=== PATIENT | male | born 1930 | race Caucasian/White ===

== ENCOUNTER 2016-10-25 13:48 | Observation (INO) ==
[2016-10-25] MEDS ORDERED: PHYTONADIONE 10 MG in 0.9 % SODIUM CHLORIDE 50 ML IV ONE (14:10)
[2016-10-25] MEDS ORDERED: PHYTONADIONE 10 MG/ML AMPUL IM ONE (14:21)
[2016-10-25] MEDS ORDERED: PHYTONADIONE 10 MG/ML AMPUL ONE (14:22)
[2016-10-25] MEDS ORDERED: diphenhydrAMINE 50 MG/ML VIAL IV ONE (14:26)
[2016-10-25] MEDS ORDERED: ACETAMINOPHEN 325 MG TABLET PO ONE (14:26)
[2016-10-25] MEDS ORDERED: 0.9 % SODIUM CHLORIDE 1,000 ML IV ONE ×2 (14:26→22:35)
[2016-10-25] MEDS ORDERED: 0.9 % SODIUM CHLORIDE 250 ML IV SCH ×6 (14:30→22:45)
[2016-10-25] MEDS ORDERED: TRANEXAMIC ACID 1,000 MG/10 ML VIAL IV ONE (14:32)
--- NOTE | 2016-10-25 15:25 | Emergency Department Note ---
General Adult HPI - General Chief complaint: Bleeding Other Stated complaint: Cannot stop bleeding from a tooth Time Seen by Provider: 10/25/16 14:10 Source: family Mode of arrival: ambulatory Limitations: no limitations - History of Present Illness HPI Narrative: 86-year-old male who is on Coumadin for atrial fibrillation and a mechanical heart valve comes in after getting dental surgery 4 days ago. Since then he has had gradually increasing oozing from his right lower gum. Yesterday he just really started bleeding rather briskly and so this morning his dentist put a couple stitches in the gums. Did not resolve the issue and in fact is now with quite a bit of swelling and now purpura developing in his neck. Taking [place] for pain. He is now soaking through a gauze pad about every couple minutes. Complains of increasing frequency of urine-this is chronic. - Related Data Home Medications Medication Instructions Recorded Confirmed cholecalciferol (vitamin D3) 2,000 2,000 unit PO QDAY cap 11/13/14 10/25/16 unit capsule ascorbic acid (vitamin C) 1,000 mg 1 g PO QDAY tab 03/14/15 10/25/16 tablet calcium carbonate 600 mg calcium 600 mg PO QDAY tab 03/14/15 10/25/16 (1,500 mg) tablet coenzyme Q10 100 mg capsule 100 mg PO QDAY 03/14/15 10/25/16 vitamin E 200 unit capsule 400 unit PO QDAY 03/14/15 10/25/16 ferrous sulfate 325 mg (65 mg 325 mg PO QDAY 03/11/16 10/25/16 iron) tablet Walker [Ultra-Light Rollator] 1 each .ROUTE .MEDSUPPLY 10/25/16 10/25/16 Previous Rx's Medication Instructions Recorded lansoprazole 30 mg capsule,delayed 30 mg PO QDAY 90 Days 12/31/14 release magnesium hydroxide 400 mg/5 mL 30 ml PO QHS #360 ml 02/13/15 oral suspension polyethylene glycol 3350 17 17 g PO BID #2 each 08/16/15 gram/dose oral powder diclofenac 1 % topical gel 2 g TOPICAL TID #100 g 10/24/15 docusate sodium 100 mg capsule 100 mg PO BID 90 Days 10/31/15 calcitonin (salmon) 200 1 spray INTRANASAL QDAY #3.7 ml 04/03/16 unit/actuation nasal spray venlafaxine ER 75 mg 150 mg PO QDAY 90 Days 04/03/16 capsule,extended release 24 hr sennosides 8.6 mg tablet 8.6 mg PO BID PRN #20 tab 04/06/16 digoxin 250 mcg tablet 125 mcg PO QDAY 90 Days 04/23/16 methimazole 10 mg tablet 10 mg PO .COMPLEX #45 tab 08/20/16 sotalol 80 mg tablet 80 mg PO .COMPLEX 90 Days 08/20/16 warfarin 5 mg tablet See Dose Instructions PO .COMPLEX 09/24/16 #30 tab tamsulosin 0.4 mg capsule 0.4 mg PO BID 90 Days 09/29/16 fentanyl 25 mcg/hr transdermal 1 patch TRANSDERMA Q72H #9 patch 10/23/16 patch Allergies Allergy/AdvReac Type Severity Reaction Status Date / Time carisoprodol [From Soma] Allergy Intermediate Nausea and Verified 10/25/16 13:53 vomiting Diclofenac Allergy Intermediate Abdominal Verified 10/25/16 13:53 [From Arthrotec 50] bloating and diarrhea fosinopril [From Monopril] Allergy Intermediate Gastrointestinal Verified 13:53 Upset misoprostol Allergy Intermediate Abdominal Verified 10/25/16 13:53 [From Arthrotec 50] bloating and diarrhea Nefazodone [From Serzone] Allergy Intermediate Dizziness Verified 10/25/16 13:53 sertraline [From Zoloft] Allergy Intermediate Gastrointestinal Verified 13:53 Upset [place] pollen Allergy Intermediate [place] dust Uncoded 08/20/16 16:07 allergy Review of Systems All systems ED: reviewed and negative except as stated. Past Medical History - Past Medical History Attestation: Yes: The following information was validated with the patient. Medical history: Reports: atrial fibrillation, hyperlipidemia, osteoporosis, TIA , valvular heart disease, other (BPH, duodenal ulcer, Graves) Surgical history ED: Reports: heart valve replacement, knee replacement, orthopedic, other (bilateral shoulder), pacemaker/AICD, vascular surgery (AAA), other (testicle, sinus) - Social History smoking status: Never smoker Physical Exam Elderly male no acute distress resting comfortably. Difficulty talking secondary to swollen gums and teeth on the right. normocephalic atraumatic. Conjunctive are clear sclerae nonicteric. No nasal discharge but some congestion. Oropharynx is pink and moist. Right mandible midsection shows oozing at tooth extraction site. Several stitches are in place. There is general edema in this area. Neck is supple without lymphadenopathy but does show purpura likely from blood coming down the tissue planes. Heart is irregularly irregular rhythm with a loud murmur from mechanical valve. Unsure basically clear to auscultation bilaterally without wheezes rales rhonchi or respiratory distress. +2 radial pulse. Trace to +1 pedal edema bilaterally. Alert oriented. - General Limitations: no limitations Course Vital Signs Temperature 97.1 F 10/25/16 13:49 Pulse Rate 93 H 10/25/16 13:49 Respiratory Rate 16 10/25/16 13:49 Blood Pressure 103/68 10/25/16 13:49 Pulse Oximetry (%) 99 10/25/16 13:49 Temperature 97.1 F 10/25/16 13:49 Pulse Rate 82 10/25/16 15:31 Respiratory Rate 16 10/25/16 13:49 Blood Pressure 123/60 10/25/16 15:31 Pulse Oximetry (%) 97 10/25/16 15:31 Medical Decision Making - Lab Data Lab results reviewed: Yes I reviewed the patient's lab results. Lab Results 10/25/16 10/25/16 Range/Units 14:10 14:15 POC Hct 34.0 L (41.0-55.0) % POC PT 51.3 H (11.9-14.5) sec POC INR 4.6 H (0.9-1.2) POC Sodium 139 (133-145) mmol/L POC Potassium 4.1 (3.3-5.1) mmol/L POC Chloride 102 (96-108) mmol/L POC Total CO2 22 (22-30) mmol/L POC BUN 30 H (8-23) mg/dl POC Creatinine 0.7 (0.7-1.2) mg/dl POC Glucose 142 H (70-105) mg/dL POC WB Ioniz Calcium 1.13 L (1.16-1.32) mmol/L Disposition Clinical Impression: Supratherapeutic INR, Surgical wound hemorrhage after dental procedure Summary: Found to have a oozing dental wound right mandible midsection, status post suturing. INR was supratherapeutic at 4.6. So vitamin K 5 mg IM were given. Due to the history of bleeding over 4 days and soaking 3 gauze pads in short order I went ahead and ordered transfusion with fresh frozen plasma and packed red blood cells-I ordered this early because of the lag time with getting blood over here but also briskness of his bleeding initially coming in. However Chem- 8 came back with a hematocrit of 34 so he did not meet criteria. Transfusion related orders were canceled. I also gave him thousand milligrams of tranexamic acid IV. IV fluids started as well. At this point his vital signs are stable, he does not need a transfusion, and measures have been taken to stop the bleeding. Indeed bleeding has slowed but not stopped; I am uncomfortable sending him home especially since he has several reasons to be on Coumadin-atrial fibrillation, aortic valve replacement , history of AAA repair, previous TIA. Discussed his case with Dr. Solano the hospitalist who agreed to accept the patient in transfer for monitoring and further care Disposition: Xfer As Outpt/Obs ([facility]) Condition: Fair Referrals: Jose Crisostomo MD [Primary Care Provider] - Beatriz Strauss MD [Physician] -
--- NOTE | 2016-10-25 16:10 | Internal Med History&Physical ---
Medical - H&P: HPI Patient information: Note initiated : 10/25/16 at 4:03 pm Patient: Bull Mccracken 86 y/o M admitted on for Cannot stop bleeding from a tooth. History of present illness: Mr. Mccracken is a 86 year old male he is on chronic warfarin therapy for history of mechanical heart valve, atrial fibrillation aortic aneurysm. He had a tooth extraction with oral surgery 4 days ago. His daughter say he did okay for a couple of days, but 3 days ago started to bleed. They say he was spitting outblood and blood clots so they took him back to the oral surgeon today, who put in stitches. He continues to ooze blood, so they brought him in today because it does not seem to be going away. iNR in the emergency room was elevated at 4.5. The patient was still bleeding fairly profusely, so IV and IM vitamin K were given. He was then given tranexamic acid also. his bleeding did not seem to slow up much, so he is admitted now for observation. most of the history is obtained from his 2 daughters, as the patient has a gauze pack over the surgical area. the patient is able to nod, and occasionally pulls the gauze out of his mouth so that he can speak. His daughter say he has been having some pain in the right jaw area, but otherwise had been feeling okay. He has not had fever or chills or headaches. He does have chronic orthostatic dizziness, which is unchanged. He denies new eye or ear symptoms, sore throat or cough. He indicates he had some right-sided chest discomfort which has been intermittent but no left-sided chest discomfort. He denies palpitations, shortness of breath, abdominal pain, nausea or vomiting. His daughter say he has chronic intermittent diarrhea. He also has urge incontinence. Medical History Aneurysm, aortic (Acute) S/P repair in 2000 with updated US stable in 01/2011. Arrhythmia (Acute) Bradyarrhythmia; dual chamber pacemaker placed. Atrial fibrillation (Acute) Atrioventricular block, second degree (Acute) 01/31/2014 - Dr. Herman BPH with obstruction/lower urinary tract symptoms (Acute) Basal cell carcinoma (Acute) Closed head injury (Acute) 05/17/14 - Dr. Doran Closed rib fracture (Acute) 06/22/14 - Dr. Cosme. Right 9th rib Colonic polyp (Acute) Compression fracture of T12 vertebra (Acute) Constipation (Acute) Deviated nasal septum (Acute) Hx of chronic rhinitis, post nasal drip, and sinus infections. Seems to be stable. Elevated INR (Acute) Esophagitis (Acute) Last EGD 2006; stable on Prevacid Fall (Acute) 06/10/2015--rt forehead,hand abrasions Hiatal hernia (Acute) Hip pain (Acute) Bilateral hip pain on the background of multi-joint degenerative arthritis - prn analgesics History of esophageal dilatation (Acute) 04/2007 History of varicocele (Acute) 1991 Hx traumatic fracture (Acute) 09/16/2012. Traumatic fracture of distal tuft of third distal phalanx. Hyperlipidemia (Acute) Zocor Hypertonicity of bladder (Acute) 06/15/2013. Overactive bladder; hypertonicity Lacunar infarction (Acute) Remote, in the inferior right cerebellar hemispher, and also the left superior cerebellar vermis Mitral regurgitation (Acute) With ruptured chordae. [facility] prosthesis in 01/2002 - chronic anticoagulation; normal coronaries; dual chamber pacer for bradyarrhythmia and paroxysmal atrial fibrillation originally placed in 2000. Battery change 2008; guidant with base rate sat at 70. Follows with Dr. Cabrera with recent reassessment in 03/2012 including updated echo in 02/2012 and stable persantine cardiolite in 03/2012. Osteoporosis (Acute) 08/30/2014 Rhinitis, chronic (Acute) TIA (transient ischemic attack) (Acute) Urinary tract infection (Acute) Anemia (Chronic) Chronic anemia dating back to 2006; last lab workup 09/2011. Currently stable. Elevated BUN (Chronic) 01/17/2015 - Dr. Franz: Secondary to recent upper gastrointestinal bleed Gastrointestinal hemorrhage (Chronic) see dictation for details Mild cognitive impairment (Chronic) Obstructive uropathy (Chronic) Stable on Flomax; improved with circumcision in 10/2011 Pacemaker (Chronic) Dual chamber. Originally placed in 2000; battery change in 06/2008; guidant with base rate set at 70. Follows with Dr. Cabrera. Paroxysmal atrial fibrillation (Chronic) Pacemaker originally placed in 2000 Situational depression (Chronic) Stable on Effexor Upper GI bleed (Chronic) Surgical History History of abdominal aortic aneurysm repair (Acute) 2000. S/P repair of aortic aneurysm 2000 with updated US stable 01/2011 History of circumcision (Acute) History of colonoscopy (Acute) 05/18/2012; Revealed adenomatous polyps. Further screening not needed due to current age. 05/04/2013 -- Tubular adenomas, minor diverticulosis, small hemorrhoid. History of esophagogastroduodenoscopy (Acute 01/18/15) 01/18/2015 - Dr. Calixto 05/11/2007; Hiatal hernia; onset anemia, source unclear History of sinus surgery (Acute) Mid History of surgery (Acute) Mitral valvuloplasty. 01/2002 Hx of esophagogastroduodenoscopy (Acute 04/17/15) 04/17/15-Dr Spicer Aortic valve replaced (Chronic) [facility] Valve. 01/16/2002 History of arthroplasty of left knee (Chronic) History of left knee replacement (Chronic 01/07/15) Dr. Yeung History of pacemaker (Chronic) 2000. Dual chamber pacer insertion original in 12/2000 and battery change in 2008 Medication List ascorbic acid (vitamin C) 1 g PO QDAY calcitonin (salmon) 200 unit/actuation 1 spray Intranasal QDAY calcium carbonate 600 mg PO QDAY cholecalciferol (vitamin D3) 2,000 units PO QDAY coenzyme Q10 100 mg PO QDAY diclofenac 1% (Voltaren) 2 grams Topical TID digoxin (Lanoxin) 125 mcg (1/2 x 250 mcg) PO QDAY 3 months docusate sodium 100 mg PO BID 90 days fentanyl (Duragesic) 1 patch Transdermal Q72H 30 days ferrous sulfate 325 mg PO QDAY lansoprazole 30 mg PO QDAY 90 days magnesium hydroxide 30 mL PO QHS methimazole 10 mg PO .QOD polyethylene glycol 3350 (Miralax) 17 grams PO BID sennosides (Senna Lax) 8.6 mg PO BID PRN simvastatin (Zocor) 20 mg PO QPM 90 days sotalol 80 mg PO 1.5 morning & 2 evening 90 days tamsulosin (Flomax) 0.4 mg PO QDAY 90 days venlafaxine ER (Effexor XR) 150 mg (2 x 75 mg) PO QDAY 90 days vitamin E 400 units PO QDAY walker Four-wheeled walker and accessories warfarin 5mg (1 tablet) Mondays, , and Fridays & 2.5mg (1/2 tab) x 4 days Allergies/Adverse Reactions carisoprodol [From Soma] Allergy (Intermediate, Verified 08/20/16 16:07) Nausea and vomiting Diclofenac [From Arthrotec 50] Allergy (Intermediate, Verified 08/20/16 16:07) Abdominal bloating and diarrhea fosinopril [From Monopril] Allergy (Intermediate, Verified 08/20/16 16:07) Gastrointestinal Upset misoprostol [From Arthrotec 50] Allergy (Intermediate, Verified 08/20/16 16:07) Abdominal bloating and diarrhea Nefazodone [From Serzone] Allergy (Intermediate, Verified 08/20/16 16:07) Dizziness sertraline [From Zoloft] Allergy (Intermediate, Verified 08/20/16 16:07) Gastrointestinal Upset [place] pollen Allergy (Intermediate, Uncoded 08/20/16 16:07) Keith dust allergy Family History No family history No family history of cardiovascular disease Disorder of endocrine system- No family history Sister History of malignant neoplasm Social History marital status: legally retirement: No occupational status: retired smoking status: Never smoker alcohol intake frequency: does not drink substance use type: does not use Medical - H&P: Meds Home Medications Medication Instructions Recorded Confirmed Type cholecalciferol (vitamin D3) 2,000 2,000 unit PO QDAY cap 11/13/14 10/25/16 History unit capsule lansoprazole 30 mg capsule,delayed 30 mg PO QDAY 90 Days 12/31/14 10/25/16 Rx release magnesium hydroxide 400 mg/5 mL 30 ml PO QHS #360 ml 02/13/15 10/25/16 Rx oral suspension ascorbic acid (vitamin C) 1,000 mg 1 g PO QDAY tab 03/14/15 10/25/16 History tablet calcium carbonate 600 mg calcium 600 mg PO QDAY tab 03/14/15 10/25/16 History (1,500 mg) tablet coenzyme Q10 100 mg capsule 100 mg PO QDAY 03/14/15 10/25/16 History vitamin E 200 unit capsule 400 unit PO QDAY 03/14/15 10/25/16 History polyethylene glycol 3350 17 17 g PO BID #2 each 08/16/15 10/25/16 Rx gram/dose oral powder docusate sodium 100 mg capsule 100 mg PO BID 90 Days 10/31/15 10/25/16 Rx ferrous sulfate 325 mg (65 mg 325 mg PO QDAY 03/11/16 10/25/16 History iron) tablet calcitonin (salmon) 200 1 spray INTRANASAL QDAY #3.7 ml 04/03/16 10/25/16 Rx unit/actuation nasal spray venlafaxine ER 75 mg 150 mg PO QDAY 90 Days 04/03/16 10/25/16 Rx capsule,extended release 24 hr sennosides 8.6 mg tablet 8.6 mg PO BID PRN #20 tab 04/06/16 10/25/16 Rx digoxin 250 mcg tablet 125 mcg PO QDAY 90 Days 04/23/16 10/25/16 Rx methimazole 10 mg tablet 10 mg PO .COMPLEX #45 tab 08/20/16 10/25/16 Rx sotalol 80 mg tablet 80 mg PO .COMPLEX 90 Days 08/20/16 10/25/16 Rx warfarin 5 mg tablet See Dose Instructions PO .COMPLEX 09/24/16 10/25/16 Rx #30 tab tamsulosin 0.4 mg capsule 0.4 mg PO BID 90 Days 09/29/16 10/25/16 Rx fentanyl 25 mcg/hr transdermal 1 patch TRANSDERMA Q72H #9 patch 10/23/16 Rx patch Walker [Ultra-Light Rollator] 1 each .ROUTE .MEDSUPPLY 10/25/16 10/25/16 History Allergies Allergy/AdvReac Type Severity Reaction Status Date / Time carisoprodol [From Soma] Allergy Intermediate Nausea and Verified 10/25/16 13:53 vomiting Diclofenac Allergy Intermediate Abdominal Verified 10/25/16 13:53 [From Arthrotec 50] bloating and diarrhea fosinopril [From Monopril] Allergy Intermediate Gastrointestinal Verified 13:53 Upset misoprostol Allergy Intermediate Abdominal Verified 10/25/16 13:53 [From Arthrotec 50] bloating and diarrhea Nefazodone [From Serzone] Allergy Intermediate Dizziness Verified 10/25/16 13:53 sertraline [From Zoloft] Allergy Intermediate Gastrointestinal Verified 13:53 Upset [place] pollen Allergy Intermediate [place] dust Uncoded 08/20/16 16:07 allergy Medical - H&P: Exam - Constitutional Vitals: Temp Pulse Resp BP Pulse Ox 97.1 F 82 16 123/60 97 10/25/16 13:49 10/25/16 15:31 10/25/16 13:49 10/25/16 15:31 10/25/16 15:31 on exam, he is an elderly man, who is a little bit weak. He is standing at the bedside with a walker when it first meet him, and the nurses are trying to clean him up after he has been incontinent of urine. head: Normocephalic, atraumatic. Eyes: PERRLA, EOMI, anicteric. Ears: TMs and canals are clear. Pharynx: oral Pharynx is filled with both bright red blood as well as blood clots. He has a right lower molar area that has sutures but is covered with bright red blood. neck: No lymphadenopathy, JVD, thyromegaly, bruits are noted. cardiac:Shows an irregularly irregular rhythm, without obvious murmurs, rubs, gallops. lungs:He has a little bit of trouble doing deep breathing with his mouth closed. Breath sounds are somewhat decreased, without obvious rales, rhonchi, wheezes. abdomen is obese, but soft and nontender without obvious masses. Extremities: Show no significant cyanosis, clubbing, edema. Neurologic:He is alert and cooperative. He did not speak much because of packing in his mouth. Exam is grossly nonfocal. Medical - H&P: Reslt - Labs CBC & Chem 7: 10/26/16 11:12 10/26/16 06:35 Labs: hematocrit:34 cBC from August 13, 2016: Hemoglobin 11.8, hematocrit 36 June 22, 2016: Hemoglobin 11.2, hematocrit 34 pro time: 51, INR 4.6 hemistries:Sodium 139 potassium 4.1, chloride 102, CO2 22, BUNs 30, creatinine 0.7, glucose 142 ionized calcium low at 1.13 september 17, 2016: TSH is low at 0.05, free T4 is normal at 1.0 Medical - H&P: A/P (1) Surgical wound hemorrhage after dental procedure Current visit: Yes Status: Acute (2) Mechanical heart valve present Current visit: Yes Status: Acute (3) Graves' disease Current visit: Yes Status: Acute (4) Supratherapeutic INR Current visit: Yes Status: Acute (5) Atrial fibrillation Problem details: 05/22/14 - Dr. Franz Current visit: No Status: Acute (6) History of abdominal aortic aneurysm repair Problem details: 2000. S/P repair of aortic aneurysm 2000 with updated US stable 01/2011 Current visit: No Status: Acute (7) Graves disease Current visit: Yes Status: Chronic - Narrative A/P Narrative: #1. Hematologic. -This patient presents with ongoing bleeding from his gum, after a tooth extraction. His oral surgeon reportedly put a stitch in there this morning, but it continues to bleed. The patient also presents with an elevated INR, which is likely contributing to the ongoing bleeding. He was given IV and IM vitamin K in the emergency room but the bleeding does not seem to be slowing down yet. -he will be admitted to observation, to monitor vital signs, hemoglobin and hematocrit, iNR. -it is quite important not to let his INR drop too far, given his mechanical heart valve, atrial fibrillation, aortic aneurysm stent. -Monitor on telemetry. -add IV penicillin to prevent bacteremia related to oral surgery mechanical heart valve, and ongoing bleeding. #2. Cardiac. -Mechanical heart valve, atrial fibrillation, aortic aneurysm repair :Try to maintain INR between 2.5and 3.5. -monitor on telemetry. -pacemaker in place. -continue digoxin, and sotalol. -resume warfarin when INR at goal. -coronary artery disease. continue Zocor 33. CODE STATUS: DNR #4. DVT prophylaxis:Patient is fully anticoagulated. 35. Graves' disease. continue methimazole 36. GI. history of peptic ulcers as well as esophagitis. Continue proton pump inhibitor. #7. psychiatric. History of mild cognitive impairment. also history of depression. -continue Effexor #8. Osteoporosis. -Continue calcium and vitamin D, and his home calcitonin. #9. BPH. Continue Flomax this visit took approximately 55 minutes, to review the patient's old records review his history with his daughters and with him, examined him, and write orders. Addendum: Called to see pt stat at 1030 pm. Pt noted to have gotten out of bed. Nurse went in and caught him as he fainted. Initial SBP very low, pt unresponsive. Back to bed, in trendelenberg, when I arrived, the patient is arousable. he denies pain, or shortness of breath. he has continued to ooze blood from the site of his oral surgery, and has been spitting outbright red blood as well as clots, and also apparently swallowing this, as he vomited bloody fluid at least twice. initially, he was quite tachycardic, but heart rate had come back down into the 90s when I saw him. Initially they had trouble getting his blood pressure, but systolic blood pressure was in the mid 80s when I arrived. he was otherwise in no acute distress. -NS bolus. -2 units Prbc's stat. -2 units ffp now. this patient responded fairly quickly to aggressive measures. Blood pressure and heart rate stabilized and ental status returned to his apparent baseline. He had no other complaints afterwards. I did call and speak with one of his daughters, and let her know what happened. She was on surprised that he did not follow directions to stay in bed. He is apparently fairly impulsive, especially when he feels he has to urinate. [id number] extra minutes was spent this evening, dealing with this acute decompensation, visiting with him again, reviewing plan of care with nursing staff.
[2016-10-25] MEDS ORDERED: MAGNESIUM HYDROXIDE 30 ML ORAL.SUSP PO PRN (16:19)
[2016-10-25] MEDS ORDERED: ONDANSETRON 4 MG/2 ML VIAL IV PRN (16:19)
[2016-10-25] MEDS ORDERED: NITROGLYCERIN 0.4 MG TAB.SUBL SL PRN (16:19)
[2016-10-25 16:42] LABS: Basophils # (Auto) 0 K/mcL (0.0-0.3); Basophils % (Auto) 0 % (0.0-2.0); Eosinophils # (Auto) 0.4 K/mcL (0.0-0.7); Eosinophils % (Auto) 2.8 % (0.0-7.0); Lymphocytes % (Auto) 22.3 % (15.5-49.0); Mean Cell Volume 89.3 fL (80.0-100.0); Mean Corpuscular Hemoglobin 29.4 pg (26.0-34.0); Monocytes # (Auto) 1.1 K/mcL (0.1-0.9); Monocytes % (Auto) 7.9 % (1.0-12.0); Platelet Count 278 K/mcL (140-440); RBC 3.62 M/mcL (4.50-5.90); Red Cell Distribution Width 16.7 % (11.5-14.5)
[2016-10-25 16:54] LABS: ALT/SGPT 13 U/l (0-40); Albumin/Globulin Ratio 1.2 (1.0-2.3); Alkaline Phosphatase 125 U/L (39-117); Bilirubin,Direct < 0.2 mg/dL (0.0-0.3); Blood Urea Nitrogen 30 mg/dl (8-23); Gamma Glutamyl Transpeptidase 45 U/L (8-61); Magnesium 1.9 mg/dL (1.6-2.5); Uric Acid 3.8 mg/dL (2.5-8.0)
[2016-10-25] MEDS ORDERED: SENNOSIDES 1 TABLET PO PRN (18:53)
[2016-10-25] MEDS: SOTALOL 80 MG TABLET PO SCH (22:53)
[2016-10-25] MEDS: MAGNESIUM HYDROXIDE 30 ML ORAL.SUSP PO SCH (22:53)
[2016-10-25] MEDS: DOCUSATE SODIUM 100 MG CAPSULE PO SCH (22:53)
[2016-10-25] MEDS: TAMSULOSIN 0.4 MG CAPSULE PO SCH (22:53)
[2016-10-25] MEDS: POLYETHYLENE GLYCOL 3350 17 GM PACKET PO SCH (22:53)
[2016-10-26] MEDS: SODIUM CHLORIDE 0.9% IV SCH ×6 (00:32→23:59)
[2016-10-26] MEDS: PENICILLIN POTASSIUM IV SCH ×6 (00:32→23:59)
[2016-10-26] MEDS: FAMOTIDINE/PF 20 MG/2 ML VIAL IV SCH ×3 (00:32→20:58)
[2016-10-26 07:29] LABS: Basophils # (Auto) 0 K/mcL (0.0-0.3); Basophils % (Auto) 0.4 % (0.0-2.0); Eosinophils # (Auto) 0.2 K/mcL (0.0-0.7); Eosinophils % (Auto) 2.3 % (0.0-7.0); Granulocytes % (Auto) 63.8 % (38.0-78.0); Lymphocytes # (Auto) 1.8 K/mcL (1.5-4.8); Lymphocytes % (Auto) 22.8 % (15.5-49.0); Mean Cell Volume 88.1 fL (80.0-100.0); Mean Corpuscular HGB Conc 34.1 g/dL (31.0-36.0); Monocytes # (Auto) 0.9 K/mcL (0.1-0.9); Monocytes % (Auto) 10.7 % (1.0-12.0); Platelet Count 168 K/mcL (140-440); RBC 2.76 M/mcL (4.50-5.90); Red Cell Distribution Width 16.1 % (11.5-14.5)
[2016-10-26 08:05] LABS: ALT/SGPT 11 U/l (0-40); Albumin 3.2 gm/dL (3.2-5.2); Albumin/Globulin Ratio 1.3 (1.0-2.3); Alkaline Phosphatase 84 U/L (39-117); Blood Urea Nitrogen 29 mg/dl (8-23)
[2016-10-26] MEDS: PANTOPRAZOLE 40 MG TABLET PO SCH (08:40)
[2016-10-26] MEDS ORDERED: METHIMAZOLE 10 MG TABLET PO SCH (09:00)
[2016-10-26] MEDS: DOCUSATE SODIUM 100 MG CAPSULE PO SCH ×2 (09:10→20:38)
[2016-10-26] MEDS: CALCITONIN NASAL SPRAY 3.7ML BOTTLE NS SCH (09:10)
[2016-10-26] MEDS: POLYETHYLENE GLYCOL 3350 17 GM PACKET PO SCH ×2 (09:10→20:38)
[2016-10-26] MEDS: SOTALOL 80 MG TABLET PO SCH ×2 (09:16→20:58)
[2016-10-26] MEDS: CALCIUM CARBONATE 500 MG TAB.CHEW CHEWED SCH (09:17)
[2016-10-26] MEDS: FERROUS SULFATE 325 MG TABLET PO SCH (09:17)
[2016-10-26] MEDS: ASCORBIC ACID 500 MG TABLET PO SCH (09:17)
[2016-10-26] MEDS: TAMSULOSIN 0.4 MG CAPSULE PO SCH ×2 (09:17→20:57)
[2016-10-26] MEDS: VITAMIN D3 1,000 UNIT TABLET PO SCH (09:38)
[2016-10-26] MEDS: VENLAFAXINE 75 MG CAP.XL.24H PO SCH (09:38)
[2016-10-26] MEDS ORDERED: fentaNYL 25 MCG PATCH TOPICAL SCH (10:00)
--- NOTE | 2016-10-26 13:59 | Internal Med Progress Note ---
Medical - PN: Subj Patient information: Note initiated : 10/26/16 at 1:56 pm Service Date, if different from initiated Date: [] Patient: Bull Mccracken 86 y/o M admitted on 10/25/16 for Surgical Wound Hemorrhage after Dental Procedure. Chief Complaint: [] Interval history: october 25, 2016: History of present illness: Mr. Mccracken is a 86 year old male he is on chronic warfarin therapy for history of mechanical heart valve, atrial fibrillation aortic aneurysm. He had a tooth extraction with oral surgery 4 days ago. His daughter say he did okay for a couple of days, but 3 days ago started to bleed. They say he was spitting outblood and blood clots so they took him back to the oral surgeon today, who put in stitches. He continues to ooze blood, so they brought him in today because it does not seem to be going away. iNR in the emergency room was elevated at 4.5. The patient was still bleeding fairly profusely, so IV and IM vitamin K were given. He was then given tranexamic acid also. his bleeding did not seem to slow up much, so he is admitted now for observation. most of the history is obtained from his 2 daughters, as the patient has a gauze pack over the surgical area. the patient is able to nod, and occasionally pulls the gauze out of his mouth so that he can speak. His daughter say he has been having some pain in the right jaw area, but otherwise had been feeling okay. He has not had fever or chills or headaches. He does have chronic orthostatic dizziness, which is unchanged. He denies new eye or ear symptoms, sore throat or cough. He indicates he had some right-sided chest discomfort which has been intermittent but no left-sided chest discomfort. He denies palpitations, shortness of breath, abdominal pain, nausea or vomiting. His daughter say he has chronic intermittent diarrhea. He also has urge incontinence. October 26: last evening, the patient climbed out of bed without requesting help, and then proceeded to faint. the nurses were ableto put him back into bed. Initially he was unresponsive and had very low blood pressure and tachycardia. He responded quickly to IV fluids and later to transfusion with red blood cells and FFP. He had continued oozing of blood from his right lower molar surgery site over most of the evening, but by this morning, that does seem to have stopped. his morning, he does not recall much of yesterday's events. He reports that he feels fine, except that he still has some soreness in the right lower jaw. He denies fever or chills, headaches or dizziness cough, chest pain or palpitations , shortness of breath, abdominal pain, nausea or vomiting, diarrhea or constipation, or dysuria. hemoglobin is improved this morning and vital signs are stable. However, the patient does become lightheaded and quite weak, with standing. He was a 2 person assist, just to get from the bed to the chair. - Constitutional Vitals: Vital Signs Temp Pulse Resp BP Pulse Ox 98.5 F 46 L 20 134/69 100 10/26/16 06:46 10/25/16 17:46 10/25/16 16:30 10/26/16 06:46 10/26/16 06:46 Period Temp Pulse Resp BP Sys/Ross Pulse Ox Last 24 Hr 98.0 F-98.9 F 30-109 20-20 67-145/17-123 93-100 Intake and Output 10/25/16 10/26/16 10/26/16 21:59 05:59 13:59 Intake Total 1888 Output Total 300 / 300 500 / 500 180 / 180 Balance -300 / 700 1389 / 1389 -129 / -129 Weight 183 lb Intake & Output: Intake & Output 10/25/16 10/26/16 10/26/16 21:59 05:59 13:59 Intake Total 1888 Output Total 300 / 300 500 / 500 180 / 180 Balance -300 / 700 1389 / 1389 -129 / -129 Weight 183 lb Intake: IV 1189 / 1189 Sodium Chloride 0.9% 1, 1000 / 1000 000 ml @ Wide Open IV [facility] Rx#:[id number] Sodium Chloride 0.9% 250 138 / 138 ml @ 20 mls/hr IV . [id number] [facility] Rx#: [id number] Pfizerpen 500,000 Unit In Sodium Chloride 0.9% 50 ml @ 100 mls/hr IV Q6H [facility] Rx#:[id number] Blood Product 700 / 700 Output: Urine Catheter Amount 500 / 500 180 / 180 Void Amount 300 / 300 Other: # Voids 2 # Bowel Movements 1 on exam, the patient is awake and alert, and in no acute distress. he is visited today in the presence of both his nurse and his daughter. Neck is supple without obvious JVD. Cardiac exam shows an irregularly irregular rhythm. Lungs: Are clear to auscultation. Abdomen: Is soft and nontender. Extremities: Show trace edema. Neurologic exam: Patient is a bit forgetful, but otherwise exam is grossly nonfocal. Medical - PN: Obj Da - Labs CBC & Chem 7: 10/26/16 11:12 10/26/16 06:35 Labs: Abnormal Lab Results 10/26/16 10/26/16 10/26/16 11:12 06:35 06:35 RBC 2.76 L Hgb 9.0 L 8.3 L Hct 26.5 L 24.3 L RDW 16.1 H PT INR BUN 29 H Creatinine 0.6 L Glucose 123 H Calcium 8.2 L Total Bilirubin 1.9 H Total Protein 5.7 L 10/26/16 10/25/16 06:30 20:21 RBC Hgb 8.7 L Hct 25.9 L RDW PT 22.0 H INR 1.9 H BUN Creatinine Glucose Calcium Total Bilirubin Total Protein Labs: october 25: hematocrit:34 cBC from August 13, 2016: Hemoglobin 11.8, hematocrit 36 June 22, 2016: Hemoglobin 11.2, hematocrit 34 pro time: 51, INR 4.6 chemistries:Sodium 139 potassium 4.1, chloride 102, CO2 22, BUN 30, creatinine 0.7, glucose 142 ionized calcium low at 1.13 september 17, 2016: TSH is low at 0.05, free T4 is normal at 1.0 Meds: Medications Ascorbic Acid (Vitamin C) 1,000 mg PO DAILY [facility] Last Admin: 10/26/16 09:17 Dose: 1,000 mg Calcitonin [place] (Miacalcin) 1 spray NS QDAY [facility] Last Admin: 10/26/16 09:10 Dose: Not Given Calcium Carbonate/Glycine (Tums) 500 mg CHEWED DAILY [facility] Last Admin: 10/26/16 09:17 Dose: 500 mg Digoxin (Lanoxin) 125 mcg PO DAILY@1400 [facility] Docusate Sodium (Colace) 100 mg PO BID [facility] Last Admin: 10/26/16 09:10 Dose: Not Given Famotidine (Pepcid) 20 mg IV Q12 [facility] Last Admin: 10/26/16 09:16 Dose: 20 mg Fentanyl (Duragesic) 25 mcg TOPICAL Q72H [facility] Ferrous Sulfate (Ferrous Sulfate) 325 mg PO QAC [facility] Last Admin: 10/26/16 09:17 Dose: 325 mg Penicillin G Potassium 500,000 (unit/ Sodium Chloride) 51 mls @ 100 mls/hr IV Q6H [facility] Last Infusion: 10/26/16 06:49 Dose: Infused Magnesium Hydroxide (Milk Of Magnesia) 30 ml PO DAILYP PRN PRN Reason: Constipation Magnesium Hydroxide (Milk Of Magnesia) 30 ml PO QHS [facility] Last Admin: 10/25/16 22:53 Dose: Not Given Methimazole (Methimazole) 5 mg PO Q48@0900 [facility] Methimazole (Methimazole) 10 mg PO Q48@0900 [facility] Nitroglycerin (Nitrostat) 0.4 mg SL Q5M PRN PRN Reason: Chest Pain Ondansetron HCl (Zofran) 4 mg IV Q4HP PRN PRN Reason: Nausea And Vomiting Last Admin: 10/25/16 22:54 Dose: 4 mg [facility]oprazole Sodium [facility] Admin: 10/26/16 08:40 Dose: 40 mg Polyethylene Glycol (Miralax) 17 gm PO BID [facility] Last Admin: 10/26/16 09:10 Dose: Not Given Senna (Senokot) 1 tab PO BID PRN PRN Reason: constipation Sotalol HCl (Betapace) 120 mg PO DAILY [facility] Last Admin: 10/26/16 09:16 Dose: 120 mg Sotalol HCl (Betapace) 160 mg PO HS [facility] Last Admin: 10/25/16 22:53 Dose: Not Given Tamsulosin HCl (Flomax) 0.4 mg PO BID [facility] Last Admin: 10/26/16 09:17 Dose: 0.4 mg Venlafaxine HCl (Effexor Xr) 150 mg PO QDAY [facility] Last Admin: 10/26/16 09:38 Dose: 150 mg Vitamin D (Vitamin D3) 2,000 unit PO DAILY [facility] Last Admin: 10/26/16 09:38 Dose: 2,000 unit Medical - PN: A/P - Time Spent With Patient Total time spent is greater than 50% in coordination of care (as documented) at patient's floor/unit and/or counseling patient: (1) Surgical wound hemorrhage after dental procedure Status: Acute Current Visit: Yes (2) Mechanical heart valve present Status: Acute Current Visit: Yes (3) Graves' disease Status: Acute Current Visit: Yes (4) Supratherapeutic INR Status: Acute Current Visit: Yes (5) Atrial fibrillation Problem details: 05/22/14 - Dr. Franz Status: Acute Current Visit: No (6) History of abdominal aortic aneurysm repair Problem details: 2000. S/P repair of aortic aneurysm 2000 with updated US stable 01/2011 Status: Acute Current Visit: No (7) Graves disease Status: Chronic Current Visit: Yes - Narrative A/P Narrative: #1. Hematologic. -This patient presents with ongoing bleeding from his gum, after a tooth extraction. His oral surgeon reportedly put a stitch in there this morning, but it continues to bleed. The patient also presents with an elevated INR, which is likely contributing to the ongoing bleeding. He was given IV and IM vitamin K in the emergency room but the bleeding does not seem to be slowing down yet. -the patient continued to have bleeding for most of the evening yesterday. He then tried to stand up, and fainted. Hemoglobin had dropped fairly dramatically , so patient was resuscitated with both IV fluids packed red blood cells, and was also given FFPto reverse the effects of the Coumadin, regarding his ongoing bleeding from his oral surgery site. this morning, vital signs are much improved, and hemoglobin appears more stable , albeit quite a bit lower than his baseline. he is still feeling quite lightheadedwith standing, and is not able to ambulate with his walker, without assistance, as he does at baseline. at this time, we think continued observation is probably the safer route, so he will stay another night. -Monitor on telemetry. -added IV penicillin to prevent bacteremia related to oral surgery mechanical heart valve, and ongoing bleeding. #2. Cardiac. -Mechanical heart valve, atrial fibrillation, aortic aneurysm repair :Try to maintain INR between 2.5and 3.0. -monitor on telemetry. -pacemaker in place. -continue digoxin, and sotalol. -INR is now below goal, so we will resume Coumadin. -coronary artery disease. continue Zocor 33. CODE STATUS: DNR #4. DVT prophylaxis:Patient is fully anticoagulated. 35. Graves' disease. continue methimazole 36. GI. history of peptic ulcers as well as esophagitis. Continue proton pump inhibitor. #7. psychiatric. History of mild cognitive impairment. also history of depression. -continue Effexor #8. Osteoporosis. -Continue calcium and vitamin D, and his home calcitonin. #9. BPH. Continue Flomax this visit took approximately 35 minutes today, to review patient's test results , check follow-up labs again, interview and examine him, meet with his daughter , as well as our multidisciplinary team, and decide on plan of care. Medical - PN: Qual - VTE Deep Vein Thrombosis/Pulmonary Embolism Present on Admission: No
[2016-10-26] MEDS ORDERED: DIGOXIN 125 MCG TABLET PO SCH (14:00)
[2016-10-26] MEDS ORDERED: WARFARIN 5 MG TABLET PO ONE (14:04)
[2016-10-26] MEDS: MAGNESIUM HYDROXIDE 30 ML ORAL.SUSP PO SCH (20:38)
[2016-10-27] MEDS: SODIUM CHLORIDE 0.9% IV SCH (05:38)
[2016-10-27] MEDS: PENICILLIN POTASSIUM IV SCH (05:38)
[2016-10-27 06:16] LABS: Mean Corpuscular HGB Conc 34.1 g/dL (31.0-36.0); Platelet Count 172 K/mcL (140-440); RBC 2.71 M/mcL (4.50-5.90); Red Cell Distribution Width 16.7 % (11.5-14.5)
[2016-10-27 06:42] LABS: ALT/SGPT 11 U/l (0-40); Albumin 3.4 gm/dL (3.2-5.2); Albumin/Globulin Ratio 1.5 (1.0-2.3); Alkaline Phosphatase 83 U/L (39-117); Bilirubin,Direct < 0.2 mg/dL (0.0-0.3); Blood Urea Nitrogen 29 mg/dl (8-23); Gamma Glutamyl Transpeptidase 28 U/L (8-61); Magnesium 1.9 mg/dL (1.6-2.5)
[2016-10-27 07:26] LABS: Anisocytosis 1+ (NONE SEEN); Lymphocytes % 24 % (15-49); Monocytes % (Manual) 10 % (1-12); Platelet Estimate NORMAL (NORMAL); RBC Morphology ABNORM (NORMAL); Segmented Neutrophils % 66 % (38-78); Toxic Granulation FEW (NONE SEEN)
[2016-10-27] MEDS: PANTOPRAZOLE 40 MG TABLET PO SCH (07:28)
[2016-10-27] MEDS: FERROUS SULFATE 325 MG TABLET PO SCH (07:28)
[2016-10-27] MEDS ORDERED: METHIMAZOLE 10 MG TABLET PO SCH (09:00)
[2016-10-27] MEDS: SOTALOL 80 MG TABLET PO SCH (09:31)
[2016-10-27] MEDS: FAMOTIDINE/PF 20 MG/2 ML VIAL IV SCH (09:31)
[2016-10-27] MEDS: CALCIUM CARBONATE 500 MG TAB.CHEW CHEWED SCH (09:33)
[2016-10-27] MEDS: ASCORBIC ACID 500 MG TABLET PO SCH (09:33)
[2016-10-27] MEDS: DOCUSATE SODIUM 100 MG CAPSULE PO SCH (09:33)
[2016-10-27] MEDS: TAMSULOSIN 0.4 MG CAPSULE PO SCH (09:33)
[2016-10-27] MEDS: POLYETHYLENE GLYCOL 3350 17 GM PACKET PO SCH (09:34)
[2016-10-27] MEDS: CALCITONIN NASAL SPRAY 3.7ML BOTTLE NS SCH (09:34)
[2016-10-27] MEDS: VENLAFAXINE 75 MG CAP.XL.24H PO SCH (09:36)
[2016-10-27] MEDS: VITAMIN D3 1,000 UNIT TABLET PO SCH (09:37)
--- NOTE | 2016-10-27 10:37 | Discharge Summary ---
Medical - DS: Prov Patient information: Note initiated : 10/27/16 at 10:35 am Service Date, if different from initiated Date: [] Patient: Bull Mccracken 86 y/o M admitted on 10/25/16 for Surgical Wound Hemorrhage after Dental Procedure. Chief Complaint: [] Date of admission: 10/25/16 16:00 Discharge date: 10/27/16 Primary care physician: Jose Crisostomo Medical - DS: Meds - Discharge Medications Prescriptions: Enoxaparin [Lovenox] 80 mg SQ BID #10 syringe Active and Home Medications: Home Medications cholecalciferol (vitamin D3) 2,000 unit capsule 2,000 unit PO QDAY cap [History Confirmed 10/25/16 Last Taken Unknown] lansoprazole 30 mg capsule,delayed release 30 mg PO QDAY 90 Days 12/31/14 [Rx Confirmed 10/25/16 Last Taken Unknown] magnesium hydroxide 400 mg/5 mL oral suspension 30 ml PO QHS #360 ml 02/13/15 [ Rx Confirmed 10/25/16 Last Taken Unknown] ascorbic acid (vitamin C) 1,000 mg tablet 1 g PO QDAY tab 03/14/15 [History Confirmed 10/25/16 Last Taken Unknown] calcium carbonate 600 mg calcium (1,500 mg) tablet 600 mg PO QDAY tab 03/14/15 [History Confirmed 10/25/16 Last Taken Unknown] coenzyme Q10 100 mg capsule 100 mg PO QDAY 03/14/15 [History Confirmed 10/25/16 Last Taken Unknown] vitamin E 200 unit capsule 400 unit PO QDAY 03/14/15 [History Confirmed Last Taken Unknown] polyethylene glycol 3350 17 gram/dose oral powder 17 g PO BID #2 each 08/16/15 [ Rx Confirmed 10/25/16 Last Taken Unknown] docusate sodium 100 mg capsule 100 mg PO BID 90 Days 10/31/15 [Rx Confirmed 04/02 Last Taken Unknown] ferrous sulfate 325 mg (65 mg iron) tablet 325 mg PO QDAY 03/11/16 [History Confirmed 10/25/16 Last Taken Unknown] calcitonin (salmon) 200 unit/actuation nasal spray 1 spray INTRANASAL QDAY #3.7 ml 04/03/16 [Rx Confirmed 10/25/16 Last Taken Unknown] venlafaxine ER 75 mg capsule,extended release 24 hr 150 mg PO QDAY 90 Days 04/03 [Rx Confirmed 10/25/16 Last Taken Unknown] sennosides 8.6 mg tablet 8.6 mg PO BID PRN #20 tab 04/06/16 [Rx Confirmed Last Taken Unknown] digoxin 250 mcg tablet 125 mcg PO QDAY 90 Days 04/23/16 [Rx Confirmed 10/25/16 Last Taken Unknown] methimazole 10 mg tablet 10 mg PO .COMPLEX #45 tab 08/20/16 [Rx Confirmed Last Taken Unknown] sotalol 80 mg tablet 80 mg PO .COMPLEX 90 Days 08/20/16 [Rx Confirmed 10/25/16 Last Taken Unknown] tamsulosin 0.4 mg capsule 0.4 mg PO BID 90 Days 09/29/16 [Rx Confirmed 10/25/16 Last Taken Unknown] fentanyl 25 mcg/hr transdermal patch 1 patch TRANSDERMA Q72H #9 patch 10/23/16 [ Rx Confirmed 10/25/16 Last Taken Unknown] Enoxaparin [Lovenox] 80 mg SQ BID #10 syringe 10/27/16 [Rx Last Taken Unknown] Warfarin [Coumadin] 2.5 mg PO SUWE@1400 10/27/16 [History Confirmed 10/27/16 Last Taken Unknown] Warfarin [Coumadin] 5 mg PO MOTUTHFRSA@1400 10/27/16 [History Confirmed Last Taken Unknown] Medical - DS: Hosp Hospital course: \ DISCHARGE DIAGNOSIS (1) Surgical wound hemorrhage after dental procedure Status: Acute Current Visit: Yes (2) Mechanical heart valve present Status: Acute Current Visit: Yes (3) Graves' disease Status: Acute Current Visit: Yes (4) Supratherapeutic INR Status: Acute Current Visit: Yes (5) Atrial fibrillation Problem details: 05/22/14 - Dr. Franz Status: Acute Current Visit: No (6) History of abdominal aortic aneurysm repair Problem details: 2000. S/P repair of aortic aneurysm 2000 with updated US stable 01/2011 Status: Acute Current Visit: No (7) Graves disease BRIEF HOSPITAL COURSE october 25, 2016: History of present illness: Mr. Mccracken is a 86 year old male he is on chronic warfarin therapy for history of mechanical heart valve, atrial fibrillation aortic aneurysm. He had a tooth extraction with oral surgery 4 days ago. His daughter say he did okay for a couple of days, but 3 days ago started to bleed. They say he was spitting outblood and blood clots so they took him back to the oral surgeon today, who put in stitches. He continues to ooze blood, so they brought him in today because it does not seem to be going away. iNR in the emergency room was elevated at 4.5. The patient was still bleeding fairly profusely, so IV and IM vitamin K were given. He was then given tranexamic acid also. his bleeding did not seem to slow up much, so he is admitted now for observation. most of the history is obtained from his 2 daughters, as the patient has a gauze pack over the surgical area. the patient is able to nod, and occasionally pulls the gauze out of his mouth so that he can speak. His daughter say he has been having some pain in the right jaw area, but otherwise had been feeling okay. He has not had fever or chills or headaches. He does have chronic orthostatic dizziness, which is unchanged. He denies new eye or ear symptoms, sore throat or cough. He indicates he had some right-sided chest discomfort which has been intermittent but no left-sided chest discomfort. He denies palpitations, shortness of breath, abdominal pain, nausea or vomiting. His daughter say he has chronic intermittent diarrhea. He also has urge incontinence. October 26: last evening, the patient climbed out of bed without requesting help, and then proceeded to faint. the nurses were ableto put him back into bed. Initially he was unresponsive and had very low blood pressure and tachycardia. He responded quickly to IV fluids and later to transfusion with red blood cells and FFP. He had continued oozing of blood from his right lower molar surgery site over most of the evening, but by this morning, that does seem to have stopped. his morning, he does not recall much of yesterday's events. He reports that he feels fine, except that he still has some soreness in the right lower jaw. He denies fever or chills, headaches or dizziness cough, chest pain or palpitations , shortness of breath, abdominal pain, nausea or vomiting, diarrhea or constipation, or dysuria. hemoglobin is improved this morning and vital signs are stable. However, the patient does become lightheaded and quite weak, with standing. He was a 2 person assist, just to get from the bed to the chair. 10/27 patient doing well. No overnight events including oral bleeding. No concerns per staff. INR 1.7. Back on Coumadin. Continue Lovenox and 1 mg per KG body rate until INR therapeutic. Discharge home and follow-up with PCP in 5 days. Hemoglobin stable Discharge diagnosis: . - Time Spent with Patient Total time spent providing and/or coordinating discharge services: Less than 30 minutes Medical - DS: Exam - Constitutional Vitals: Vital Signs Temp BP Pulse Ox 10/27/16 04:01 110/64 10/27/16 03:01 98.5 F 103/58 10/27/16 02:01 98.6 F 101/58 10/27/16 01:01 98.8 F 109/77 10/27/16 00:05 98.9 F 10/27/16 00:01 98.9 F 114/69 10/26/16 23:01 99.1 F H 120/65 10/26/16 22:01 99.0 F H 116/66 10/26/16 21:01 99.2 F H 105/54 10/26/16 20:19 99.4 F H 10/26/16 20:01 99.4 F H 121/63 10/26/16 19:01 99.5 F H 109/58 10/26/16 18:27 99.6 F H 113/72 10/26/16 17:01 99.3 F H 123/69 10/26/16 16:01 99.4 F H 124/74 10/26/16 15:01 99.6 F H 109/66 10/26/16 14:06 99.9 F H 108/82 10/26/16 12:26 99.5 F H 125/75 10/26/16 12:02 99.5 F H 121/71 100 10/26/16 11:31 99.5 F H 120/72 96 10/26/16 11:01 99.3 F H 101/59 97 Intake and Output 10/26/16 10/27/16 10/27/16 21:59 05:59 13:59 Intake Total 51 / 51 351 / 351 120 / 120 Output Total 600 / 600 600 / 600 Balance -549 / -549 -249 / -249 120 / 120 Intake: IV Pfizerpen 500,000 Unit In Sodium Chloride 0.9% 50 ml @ 100 mls/hr IV Q6H [facility] Rx#:[id number] Oral 300 / 300 120 / 120 Output: Urine Catheter Amount 600 / 600 600 / 600 Other: Meal Breakfast Percent of Meal Consumed 100% Weight 186 lb 8 oz General appearance: cooperative, no acute distress Additional comments: lert oriented nonlabored breathing No further oral bleeding Medical - DS: Data Labs on day of discharge: Labs from last 24 hours 10/27/16 10/27/16 10/27/16 03:42 03:42 03:42 WBC 11.3 H RBC 2.71 L Hgb 8.1 L Hct 23.9 L MCV 88.0 MCH 30.0 MCHC 34.1 RDW 16.7 H Plt Count 172 MPV 8.8 Total Counted 100 Seg Neutrophils % 66 Band Neutrophils % Not Reportable Lymphocytes % 24 Monocytes % (Manual) 10 WBC Morphology Abnorm A Toxic Granulation Few A Platelet Estimate Normal RBC Morphology Abnorm A Anisocytosis 1+ A PT 20.6 H INR 1.7 H Sodium 141 Potassium 3.9 Chloride 106 Carbon Dioxide 24 Anion Gap 11.0 BUN 29 H Creatinine 0.7 GFR Calculation 84 Glucose 109 H Uric Acid 4.0 Calcium 8.4 L Phosphorus 2.5 L Magnesium 1.9 Total Bilirubin 0.7 Direct Bilirubin < 0.2 GGT 28 AST 18 ALT 11 Alkaline Phosphatase 83 Lactate Dehydrogenase 263 H Total Protein 5.7 L Albumin 3.4 Globulin 2.3 Albumin/Globulin Ratio 1.5 Triglycerides 149 10/26/16 10/26/16 11:12 06:35 WBC RBC Hgb 9.0 L Not Reportable Hct 26.5 L Not Reportable MCV MCH MCHC RDW Plt Count MPV Total Counted Seg Neutrophils % Band Neutrophils % Lymphocytes % Monocytes % (Manual) WBC Morphology Toxic Granulation Platelet Estimate RBC Morphology Anisocytosis PT INR Sodium Potassium Chloride Carbon Dioxide Anion Gap BUN Creatinine GFR Calculation Glucose Uric Acid Calcium Phosphorus Magnesium Total Bilirubin Direct Bilirubin GGT AST ALT Alkaline Phosphatase Lactate Dehydrogenase Total Protein Albumin Globulin Albumin/Globulin Ratio Triglycerides Medical - DS: A/P - Patient/Caregiver Discharge Instructions Activity: increase activity as tolerated Diet: Regular Diet Additional Instructions: Follow-up PCP in 5 days return to ER if Oral bleeding continue Lovenox until INR therapeutic Coumadin dosing based on INR as prior Prescriptions: Enoxaparin [Lovenox] 80 mg SQ BID #10 syringe - Follow up Plan Follow up with: Jose Crisostomo MD [Primary Care Provider] - (Dr. Crisostomo's office will contact you at home to schedule a follow up appt. after reviewing your chart.) Disposition: Home, Self-Care Prognosis: Fair Rehab Potential: Fair I certify that the patient requires SNF services: No Overall status at discharge: patient is back to baseline Medical - DS: Qual - VTE Deep Vein Thrombosis/Pulmonary Embolism Present on Admission: No
[2016-10-27] MEDS ORDERED: WARFARIN 5 MG TABLET PO SCH (14:00)
[2016-10-28] MEDS ORDERED: WARFARIN 2.5 MG TABLET PO SCH (14:00)
== END 2016-10-27 12:45 | disposition home or self-care (01) ==
LOC: ICU 13:48 → ED 13:48 → ICU 16:15
PROVIDERS: ADMIT Internal Medicine; ATTEND Internal Medicine